=== PATIENT | female | born 1990 | race Two or more races ===

== ENCOUNTER 2023-04-07 13:25 | Emergency (ER) | payer OTHER ==
[~2023-04-07] VITALS: Ht 162.6 cm; Wt 68.0 kg
[2023-04-07 16:11] LABS: CALCIUM 9.3 mg/dL (8.5-10.1); CREATININE SERUM 0.7 mg/dL (0.55-1.02); GFR 97.6; POTASSIUM 3.47 mEq/L (3.5-5.1)
[2023-04-07 16:18] LABS: HEMATOCRIT 34.9 % (36.0-45.00); HEMOGLOBIN 11.1 g/dL (12.0-15.00); MEAN CORPUSCULAR HEMOGLOBIN 23.8 pg (27.00-32.0); MEAN CORPUSCULAR HGB CONC 31.8 g/dl (32.0-36.0); PLATELET COUNT 276 K/uL (150-450); RED BLOOD COUNT 4.65 M/uL (4.00-6.00); RED CELL DISTRIBUTION WIDTH 16.8 % (11.5-14.5)
== END 2023-04-07 20:20 | disposition home or self-care (01) ==
LOC: EDBD 13:25 → ER 13:25
PROVIDERS: General Practice
DX: G40.89 Other seizures (principal)
CPT/HCPCS: 36415; 70450; 93005; 96365; 99284; J3490